=== PATIENT | female | born 1990 | race Caucasian/White ===

== ENCOUNTER → 2018-06-06 | Day surgery (SDC) | payer OTHER ==
[~2018-06-06] MED LIST: ACETAMINOPHEN 1000 MG/100 ML IV ONE; BUPIVACAINE 0.25%/EPI 30ML SDV INJ ONE; CEPHALEXIN500 MG PO; DEXAMETHASONE SOD PHOS INJ 4 MG/ML VIAL IV ONE; FENTANYL CITRATE/PF 100MCG/2 ML INJ ONE; HYDROCODONE/APAP 7.5MG-325MG 1 EA TAB ONE; IOPAMIDOL 610MG/1ML 300 MG/ML VIAL IV ONE; LIDOCAINE HCL 2% LOCAL INJ 5 ML SDV VIAL INJ ONE; MEPERIDINE HCL INJ 50 MG/ML INJ ONE; METOCLOPRAMIDE HCL 10 MG/2ML VIAL ONE; MIDAZOLAM HCL 2 MG/2 ML VIAL ONE; ONDANSETRON HCL INJ 2 MG/ML VIAL IV ONE; ONDANSETRON HCL INJ 2 MG/ML VIAL ONE; PROPOFOL IV EMULSION 10 MG/ML 20 ML VIAL IV ONE; ROCURONIUM BROMIDE 10 MG/ML 5ML VIAL IV ONE; SEVOFLURANE INHAL SOLN 250 ML PEN BTL INH ONE
--- NOTE | 2018-06-06 11:46 | Operative Report ---
DATE OF PROCEDURE: June 06, 2018 PREOPERATIVE DIAGNOSES 1. Cholecystitis. 2. Cholelithiasis. 3. Umbilical hernia. POSTOPERATIVE DIAGNOSES 1. Cholecystitis. 2. Cholelithiasis. 3. Choledocholithiasis. 4. Umbilical hernia. OPERATION PERFORMED 1. Laparoscopic cholecystectomy with intraoperative cholangiogram. 2. Repair of umbilical hernia. ANESTHESIA: General. COMPLICATIONS: None. ESTIMATED BLOOD LOSS: Minimal. DESCRIPTION OF PROCEDURE: With the patient lying in bed in the supine position, under good general endotracheal anesthesia, the abdomen was prepped with Betadine solution and draped in the usual manner. A semilunar subumbilical incision was made. It was carried down through the subcutaneous tissue down to the fascia. The hernia sac was then dissected all the way around with normal fascia. The umbilicus was then detached from the hernia sac. A Veress needle was introduced into the hernia sac, and pneumoperitoneum was established without any difficulty. An 11-mm trocar was placed through the hernia sac into the intraabdominal cavity, and a 10-mm video laparoscope was placed into the intraabdominal cavity. Under direct vision, three 5-mm trocars were placed in the right subcostal region. Video laparoscopy at this point revealed a gallbladder that contained multiple stones. The rest of the abdominal exploration was otherwise within normal limits. The adhesions at the neck of the gallbladder were then taken down, and the peritoneum overlying the neck of the gallbladder was opened and the cystic duct was identified. The cystic duct was followed to its junction with the common duct. The cystic duct at this point appeared to be rather large. We decided that we needed to do a cholangiogram since the patient had had some previous mild abnormalities of the liver function tests to rule out the possibility of a common duct stone. A small opening was made into the cystic duct, and a cholangiocath was introduced without any difficulty. Using the C-arm, half-strength dye was introduced into the biliary tree. This showed flow of dye into the duodenum but a definite filling defect in the distal common duct consistent with a common bile duct stone. Of interest is also the fact that the patient had a very long, low-lying, left-sided insertion of the cystic duct. The cholangiocath was then removed, and the cystic duct was then ligated with an Endo loop and a clip. The cystic artery was similarly doubly clipped and divided. The gallbladder was then slowly and carefully taken off the liver bed using the cautery scissors, and perfect hemostasis was ascertained. The gallbladder was placed in a pouch and removed through the hernia sac at the umbilicus. Video laparoscopy was then again carried out. The liver bed was found to be perfectly dry. All of the excess fluid was aspirated. The pneumoperitoneum was evacuated, and all the trocars were removed under direct vision. The hernia was then repaired in a transverse fashion using interrupted sutures of #0 Ethibond, closing the defect without any tension. All layers were infiltrated on the way out with a solution of 1/4 percent Marcaine. The umbilicus was then tacked back down to the midline fascia with 3-0 Vicryl. Subcutaneous tissue was approximated with 3-0 Vicryl, and all skin wounds were closed with subcuticular 5-0 Vicryl. Benzoin, Steri-Strips and dressings were applied. The sponge, lap and needle count was correct. Patient tolerated the procedure well and returned to the recovery room in stable condition. Job#: [id number]
[2018-06-06 12:15] VITALS: BP 109/85
--- NOTE | 2018-06-06 14:55 | Diagnostic Imaging Report ---
Exam: Intraoperative cholangiogram dated 06/06/2018 History: Stones Comparison: None available Findings: Multiple intraoperative images were obtained utilizing C-arm fluoroscopy. Cannulation of the cystic duct remnant was accomplished. Contrast has been injected. There is no spill into the duodenum. [place] filling defect in the distal common bile duct is compatible with an impacted stone. Fluoroscopy time: 17 seconds Cumulative area dose product: 124.07 cGycm2 Impression: [place] distal common duct filling defect compatible with an impacted stone. Signed by: Dr. Jaquan Wild DO on 06/06/2018 2:51 PM
== END | disposition home or self-care (01) ==
LOC: OR 06:44
PROVIDERS: ATTEND Surgery
DX: K80.44 Calculus of bile duct with chronic cholecystitis without obstruction (principal); K42.9 Umbilical hernia without obstruction or gangrene; Z01.812 Encounter for preprocedural laboratory examination; F41.9 Anxiety disorder, unspecified
CPT/HCPCS: 47563; 49585; 74300; 81025; 88304; C1766; J1100; J2001; J2175; J2250; J2405; J2765; Q9967

== ENCOUNTER → 2018-06-12 | Day surgery (SDC) | payer OTHER ==
[~2018-06-12] MED LIST changes: -ACETAMINOPHEN 1000 MG/100 ML IV ONE; -BUPIVACAINE 0.25%/EPI 30ML SDV INJ ONE; -DEXAMETHASONE SOD PHOS INJ 4 MG/ML VIAL IV ONE; +DEXAMETHASONE SOD PHOS INJ 4 MG/ML VIAL ONE; +GLUCAGON FOR INJ 1 MG VIAL ONE; +GLYCOPYRROLATE INJ 1MG/ 5 ML SYR ONE; -HYDROCODONE/APAP 7.5MG-325MG 1 EA TAB ONE; +INDOMETHACIN 50 MG SUPP.RECT RC ONE; +LACTATED RINGER'S 1,000 ML IV ONE; -MEPERIDINE HCL INJ 50 MG/ML INJ ONE; -METOCLOPRAMIDE HCL 10 MG/2ML VIAL ONE; +NEOSTIGMINE 5 MG/5ML SYR ONE; -ONDANSETRON HCL INJ 2 MG/ML VIAL IV ONE; -PROPOFOL IV EMULSION 10 MG/ML 20 ML VIAL IV ONE; +PROPOFOL IV EMULSION 10 MG/ML 20 ML VIAL ONE; -ROCURONIUM BROMIDE 10 MG/ML 5ML VIAL IV ONE; +ROCURONIUM BROMIDE 10 MG/ML 5ML VIAL ONE; -SEVOFLURANE INHAL SOLN 250 ML PEN BTL INH ONE; +SEVOFLURANE INHAL SOLN 250 ML PEN BTL ONE
--- NOTE | 2018-06-12 09:48 | Operative Report ---
DATE OF PROCEDURE: June 12, 2018 REFERRING PHYSICIAN: Dr. Thelma Mccall and Dr. Aleksey Oliva. PROCEDURE PERFORMED: Endoscopic retrograde cholangiopancreatography with endoscopic retrograde sphincterotomy and a balloon sweep. INDICATIONS FOR PROCEDURE: Patient is status post laparoscopic cholecystectomy, common bile duct stone was noted on the intraoperative cholangiogram. MEDICATION: Patient was done under general endotracheal anesthesia. Please see anesthesiologist's note. PROCEDURE: With the patient in the prone position, the flexible fiberoptic Olympus side-viewing scope was inserted into the oropharynx with ease and advanced all the way to the 2nd portion of the duodenum. The ampulla was identified and appeared to be within normal limits. It was cannulated with ease, and a cholangiogram was performed. This was followed with an endoscopic retrograde sphincterotomy and a balloon sweep times 2. The scope was subsequently withdrawn. Patient tolerated the procedure well. IMPRESSION 1. Ampulla within normal limits. 2. Cholangiogram was performed. 3. Endoscopic retrograde sphincterotomy was carried out in the usual fashion followed by balloon sweeps times 2. Patient tolerated the procedure well. Job#: [id number] RI cc:DO THELMA MARCUS MD
[2018-06-12 10:15] VITALS: BP 111/75
--- NOTE | 2018-06-12 10:52 | Diagnostic Imaging Report ---
PROCEDURE:ERCP TO BE READ TECHNIQUE:ERCP was performed. Contrast was injected into the biliary tree and fluoroscopic images saved without a radiologist present. COMPARISON:None. FINDINGS: Retrograde contrast opacification of the biliary tree shows no significant intrahepatic biliary ductal dilatation. Status post cholecystectomy with a long cystic duct, which inserts more caudally than expected onto the medial aspect of the common hepatic duct. Later images show a filling defect within the distal common hepatic duct which may reflect a balloon catheter. CONCLUSION: ERCP images as above status post cholecystectomy with aberrant inferomedial insertion of the cystic duct. Refer to clinical ERCP report for further details. Dictated by: Kaushal Santana M.D. on 06/12/2018 at 11:00 Electronically approved by: Kaushal Santana M.D. on 06/12/2018 at 11:00
--- OUTSIDE RECORDS SUMMARY | 2018-06-24 10:29 | XMS REPORT ---
Author Author [facility] Address Unknown Phone Unavailable Care Team Providers Care Wire Puller Name Role Phone SANDEE MCKENNA Unavailable Unavailable Ricky SO Unavailable Unavailable Problems This patient has no known problems. Allergies, Adverse Reactions, Alerts This patient has no known allergies or adverse reactions. Medications This patient has no known medications. Results Test Description Test Time Test Comments Text Results Atomic Results Result Comments ERCP TO BE READ 2018-06-12 11:00:00 [facility] [address] [place] [address] Patient Name: BETO MAC MR #: [id number] : 1990 Age/Sex: 28/F Req #: [id number] Adm Physician: Ordered by: SANDEE MCKENNA MD Report #: [id number] Location: ENDO Room/Bed: Procedure: [id number] DX/ERCP TO BE READ Exam Date: 06/12/18 Exam Time: 0813 REPORT STATUS: Signed PROCEDURE: ERCP TO BE READ TECHNIQUE: ERCP was performed. Contrast was injected into the biliary tree and fluoroscopic images saved without a radiologist present. COMPARISON: None. FINDINGS: Retrograde contrast opacification of the biliary tree shows no significant intrahepatic biliary ductal dilatation. Status post cholecystectomy with a long cystic duct, which inserts more caudally than expected onto the medial aspect of the common hepatic duct. Later images show a filling defect within the distal common hepatic duct which may reflect a balloon catheter. CONCLUSION: ERCP images as above status post cholecystectomy with aberrant inferomedial insertion of the cystic duct. Refer to clinical ERCP report for further details. Dictated by: Jose Elena M.D. on 06/12/2018 at 11:00 Electronically approved by: Jose Elena M.D. on 06/12/2018 at 11:00 Dictated By: JOSE ELENA MD 1100 Transcribed By: ERI on 06/12/18 1100 COPY TO: SANDEE MCKENNA MD CHOLANGIOGRAM INTROP 2018-06-06 14:46:00 [place] [address] Patient Name: BETO MAC MR #: [id number] : 1990 Age/Sex: 28/F Req #: [id number] Adm Physician: Ordered by: THELMA SO MD Report #: [id number] Location: OR Room/Bed: Procedure: [id number] DX/CHOLANGIOGRAM INTROP Exam Date: 06/06/18 Exam Time: 0840 REPORT STATUS: Signed Exam: Intraoperative cholangiogram dated 06/06/2018 History: Stones Comparison: None available Findings: Multiple intraoperative images were obtained utilizing C-arm fluoroscopy. Cannulation of the cystic duct remnant was accomplished. Contrast has been injected. There is no spill into the duodenum. [place] filling defect in the distal common bile duct is compatible with an impacted stone. Fluoroscopy time: 17 seconds Cumulative area dose product: 124.07 cGycm2 Impression: [place] distal common duct filling defect compatible with an impacted stone. Signed by: Dr. Angélica Wild DO on 06/06/2018 2:51 PM Dictated By: ANGÉLICA WILD DO 145 Transcribed By: GEMINI on 06/06/181450 COPY TO: THELMA SO MD
--- OUTSIDE RECORDS SUMMARY | 2018-06-24 10:29 | XMS REPORT | Clinical Summary ---
Author Author Vicente [facility] Organization [facility] Address Unknown Phone Unavailable Care Team Providers Care Electric Meter Reader Name Role Phone Alfonso Oliva MD PCP Allergies Active Allergy Reactions Severity Noted Date Comments Ciprofloxacin-Fluocinolon Other (See Comments) 09/20/2016 (felt fatigue) e Current Medications Prescription Sig. Disp. Refills Start End Date Status Date olopatadine 0.2 % drops INSTILL 2 DROPS IN EACH 1 09/16/19 Active EYE EVERY MORNING 18 PRENATE MINI, FERR ASP Take 1 capsule by mouth 9 09/18/19 Active GLYCIN, 18-1-350 mg daily. 18 capsule etonogestrel-ethinyl Insert vaginally and 1 each 5 06/18/20 06/18/20 Active estradiol (NUVARING) leave in place for 3 18 19 0.12-0.015 mg/24 hr consecutive weeks, then vaginal ring remove for 1 week. ampicillin (PRINCIPEN) Take 1 capsule (500 mg 20 capsule 0 09/16/19 09/21/19 500 MG total) by mouth 4 (four) 18 18 capsuleIndications: times a day for 5 days. Asymptomatic bacteriuria in PNV 67-iron ps-folate Take 1 capsule by mouth 30 capsule 9 09/17/19 10/15/19 Discontin no.1-dha (VITAFOL ULTRA) daily for 30 days. 18 18 ued 29 mg iron- 1 mg-200 mg capsuleIndications: Positive test PNV #[id number] Take 1 mg by mouth daily. 30 capsule 9 09/18/19 10/15/19 Discontin acid-dha (OB COMPLETE 18 18 ued PETITE) 35 mg iron-5 mg iron-1 mg capsuleIndications: care in second trimester HYDROcodone-acetaminophen Take 1 tablet by mouth 30 tablet 0 04/17/20 04/24/20 (NORCO) 5-325 mg per every 4 (four) hours as 18 18 tablet needed for moderate pain for up to 7 days. Max Daily Amount: 6 tablets ibuprofen (ADVIL,MOTRIN) Take 1 tablet (600 mg 30 tablet 0 04/17/20 05/17/20 600 MG tablet total) by mouth every 6 18 18 (six) hours as needed (Cramping, Laceration or Incision Pain) for up to 30 days. terconazole (TERAZOL 3) Insert 1 applicator into 20 g 0 06/18/20 06/21/20 0.8 % vaginal cream the vagina nightly for 3 18 18 days. 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 Encounters Date Type Specialty Care Team Description 06/18/2018 Obstetrics and Gynecology Alba Butcher MD care and Visit examination (Primary Dx) 04/22/2018 Telephone Obstetrics and Gynecology Cindi Morejon RN 04/15/2018 [facility] Obstetrics and Gynecology Alba Butcher MD - Encounter Sandy Guerra 04/17/2018 MD [place]en 04/15/2018 Anesthesia Obstetrics and Gynecology Raleigh Arce MD Event 04/10/2018 Routine Obstetrics and Gynecology Alba Butcher MD GA: 38w0d 04/03/2018 Routine Obstetrics and Gynecology Alba Butcher MD GA: 37w0d 03/27/2018 Routine Obstetrics and Gynecology Alba Butcher MD GA: 36w0d 03/20/2018 Routine Obstetrics and Gynecology Sandy Guerra GA: 35w0d MD Carmen 03/05/2018 Routine Obstetrics and Gynecology Sandy Guerra GA: 32w6d MD Carmen 03/03/2018 Telephone Obstetrics and Gynecology Cindi Morejon RN 02/26/2018 [facility] Obstetrics and Gynecology Sandy Guerra Encounter MD Carmen 02/26/2018 Routine Obstetrics and Gynecology Sandy Guerra GA: 31w6d MD [place]en 02/13/2018 Routine Obstetrics and Gynecology Sandy Guerra GA: 30w0d MD Carmen 01/30/2018 Routine Obstetrics and Gynecology Sandy Guerra GA: 28w0d MD [place]en 01/08/2018 Routine Obstetrics and Gynecology Sandy Guerra GA: 24w6d MD [place]en 12/10/2017 Routine Obstetrics and Gynecology Sandy Guerra GA: 20w5d MD [place]en 12/07/2017 Documentation Obstetrics and Gynecology Sandy Guerra MD 11/12/2017 Routine Obstetrics and Gynecology Sandy Guerra GA: 16w5d MD [place]en 10/28/2017 Documentation Obstetrics and Gynecology Sandy Guerra MD 10/15/2017 Routine Obstetrics and Gynecology Sandy Guerra GA: 12w5d MD [place] 09/18/2017 Orders Only Obstetrics and Gynecology Amanda Guerrero MA care in second trimester (Primary Dx) 09/17/2017 Orders Only Obstetrics and Gynecology Amanda Guerrero MA Positive test (Primary Dx) 09/16/2017 Telephone Obstetrics and Gynecology Amanda Guerrero MA 09/16/2017 Orders Only Obstetrics and Gynecology Sandy Guerra Asymptomatic bacteriuria MD Carmen in (Primary Dx) 09/11/2017 Initial Obstetrics and Gynecology Sandy Guerra GA: 7w6d MD [place]en after 06/11/2017 Immunizations Name Dates Previously Given Next Due INFLUENZA QUAD PF 09/11/2017 Tdap 04/17/2018 Family History Medical History Relation Name Comments No Known Problems Father Hypertension Mother Diabetes Paternal Grandfather Relation Name Status Comments Father Alive Mother Alive Paternal Grandfather Social History Tobacco Use Types Packs/Day Years Used Date Never Smoker Smokeless Tobacco: Never Used Alcohol Use Drinks/Week oz/Week Comments No Sex Assigned at Date Recorded Not on file Last Filed Vital Signs Vital Sign Reading Time Taken Blood Pressure 109/77 06/18/2018 10:23 AM CDT Pulse 73 06/18/2018 10:23 AM CDT Temperature 36.9 C (98.5 F) 04/17/2018 8:15 AM CDT Respiratory Rate 18 04/17/2018 8:15 AM CDT Oxygen Saturation - - Inhaled Oxygen - - Concentration Weight 67.7 kg (149 lb 3.2 oz) 06/18/2018 10:23 AM CDT Height 170.2 cm (5' 7") 06/18/2018 10:23 AM CDT Body Mass Index 23.37 06/18/2018 10:23 AM CDT Plan of Treatment Health Maintenance Due Date Last Done Comments INFLUENZA VACCINE 04/09/2018 09/11/2017, 08/09/2017 CERVICAL CANCER SCREENING 09/11/2020 09/11/2017 Procedures Procedure Name Priority Date/Time Associated Diagnosis Comments HC COMPLETE BLD COUNT Routine 04/16/2018 Results for this W/AUTO DIFF 5:43 AM CDT procedure are in the results section. ANESTHESIA EPIDURAL BLOCK Routine 04/15/2018 12:47 PM CDT Procedure Note - Raleigh Arce MD - 04/15/2018 12:47 PM CDT Epidural Block Performed by: RALEIGH ARCE Authorized by: RALEIGH ARCE ANESTHESIA EPIDURAL BLOCK Routine 04/15/2018 12:39 PM CDT Procedure Note - Raleigh Arce MD - 04/15/2018 12:39 PM CDT Epidural Block Performed by: RALEIGH ARCE Authorized by: RALEIGH ARCE Patient Location: OB Start Time: 04/15/2018 11:40 AM Reason for Block: labor epidural Anesthesio logist: RALEIGH ARCE Preprocedu re: patient identified , IV checked, site and side verified, risks and benefits discussed, procedure verified, surgical consent completed, patient position confirmed, monitors and equipment checked and pre-op evaluation completed Time Out Performed: 04/15/2018 11:40 AM Patient Position: Right lateral decubitus Prep: Betadine Monitoring : Blood pressure monitoring , continuous pulse oximetry and heart rate Approach: Midline Interspace : L3-4 Injection Technique: ABEL air Needle Type: Tuohy Needle Gauge: 17 Test Dose: Negative Number of Attempts: 1 Pump program started: pain pump Coagulati on status: Coagulatio n status reviewed Block Outcome: No apparent complicati ons, patient comfortabl e and patient tolerated procedure well Post-proce dure: Patient returned to supine position with left lateral displaceme nt and sterile dressing applied Time: 04/15/2018 11:40 AM Pump program changed: pain pump TYPE AND SCREEN Routine 04/15/2018 Results for this 7:49 AM CDT procedure are in the results section. SYPHILIS TREPONEMAL IGG Routine 04/15/2018 Results for this 7:46 AM CDT procedure are in the results section. HEPATITIS B SURFACE Routine 04/15/2018 Results for this ANTIGEN 7:46 AM CDT procedure are in the results section. HIV 1, 2 ANTIBODY Routine 04/15/2018 Results for this 7:46 AM CDT procedure are in the results section. HC COMPLETE BLD COUNT Routine 04/15/2018 Results for this W/AUTO DIFF 7:46 AM CDT procedure are in the results section. POC URINALYSIS DIPSTICK Routine 04/10/2018 care in third Results for this 1:51 PM CDT trimester procedure are in the results section. POC URINALYSIS DIPSTICK Routine 04/03/2018 Multigravida in third Results for this 11:10 AM CDT trimester procedure are in the results section. POC URINALYSIS DIPSTICK Routine 03/27/2018 Multigravida in third Results for this 10:54 AM CDT trimester procedure are in the results section. SURESWAB(R), CANDIDIASIS, Routine 03/20/2018 Results for this PCR (REFLEX) 11:41 AM CDT procedure are in the results section. SURESWAB(R) TRICHOMONAS Routine 03/20/2018 Results for this VAGINALIS RNA, QL, TMA 11:41 AM CDT procedure are in the results section. SURESWAB(R) BACTERIAL Routine 03/20/2018 Results for this VAGINOSIS DNA, QN, PCR 11:41 AM CDT procedure are in the (REFLEX) results section. POC URINALYSIS DIPSTICK Routine 03/20/2018 care in third Results for this 11:13 AM CDT trimester procedure are in the results section. POC URINALYSIS DIPSTICK Routine 03/05/2018 32 weeks gestation of Results for this 11:11 AM CDT procedure are in the results section. POC URINALYSIS DIPSTICK Routine 02/26/2018 care in third Results for this 2:50 PM CDT trimester procedure are in the results section. URINALYSIS SCREEN AND STAT 02/26/2018 Results for this MICROSCOPY, WITH REFLEX 1:34 PM CDT procedure are in the TO CULTURE results section. URINE CULTURE STAT 02/26/2018 Results for this 1:34 PM CDT procedure are in the results section. GRAM STAIN STAT 02/26/2018 Results for this 1:34 PM CDT procedure are in the results section. FIBRONECTIN Routine 02/26/2018 Results for this 1:05 PM CDT procedure are in the results section. POC URINALYSIS DIPSTICK Routine 02/17/2018 care in third Results for this 3:05 PM CDT trimester procedure are in the results section. POC URINALYSIS DIPSTICK Routine 01/30/2018 care in second Results for this 9:38 AM CDT trimester procedure are in the results section. POC URINALYSIS DIPSTICK Routine 01/08/2018 care in second Results for this 8:33 AM CDT trimester procedure are in the results section. RPR TITER WITH REFLEX TO Routine 01/08/2018 care in second Results for this CONFIRMATION 8:10 AM CDT trimester procedure are in the results section. GESTATIONAL DIABETES Routine 01/08/2018 care in second Results for this SCREEN 8:10 AM CDT trimester procedure are in the results section. CBC WITH PLATELET AND Routine 01/08/2018 care in second Results for this DIFFERENTIAL 8:10 AM CDT trimester procedure are in the results section. ANTIBODY SCREEN Routine 01/08/2018 care in second Results for this 8:10 AM CDT trimester procedure are in the results section. POC URINALYSIS DIPSTICK Routine 12/10/2017 care in second Results for this 10:07 AM CDT trimester procedure are in the results section. POC URINALYSIS DIPSTICK Routine 11/12/2017 care in second Results for this 10:36 AM BUSINESS FUNCTIONAL ANALYST trimester procedure are in the results section. POC URINALYSIS DIPSTICK Routine 10/15/2017 care in second Results for this 10:53 AM BUSINESS FUNCTIONAL ANALYST trimester procedure are in the results section. HIV 1/2 ANTIGEN/ANTIBODY, Routine 09/11/2017 Results for this FOURTH GENERATION W/RFL 5:11 PM BUSINESS FUNCTIONAL ANALYST procedure are in the (REFLEX QUEST) results section. RUBELLA IMMUNE STATUS Routine 09/11/2017 Results for this 5:11 PM BUSINESS FUNCTIONAL ANALYST procedure are in the results section. HEPATITIS B SURFACE Routine 09/11/2017 Results for this ANTIGEN 5:11 PM BUSINESS FUNCTIONAL ANALYST procedure are in the results section. RPR TITER WITH REFLEX TO Routine 09/11/2017 Results for this CONFIRMATION 5:11 PM BUSINESS FUNCTIONAL ANALYST procedure are in the results section. ABO/RH Routine 09/11/2017 Results for this 5:11 PM BUSINESS FUNCTIONAL ANALYST procedure are in the results section. ANTIBODY SCREEN Routine 09/11/2017 Results for this 5:11 PM BUSINESS FUNCTIONAL ANALYST procedure are in the results section. CBC WITH PLATELET AND Routine 09/11/2017 Results for this DIFFERENTIAL 5:11 PM BUSINESS FUNCTIONAL ANALYST procedure are in the results section. VARICELLA ZOSTER VIRUS Routine 09/11/2017 Secondary amenorrhea Results for this AB, IGG 5:11 PM BUSINESS FUNCTIONAL ANALYST Positive test procedure are in the results section. THYROID STIMULATING Routine 09/11/2017 Secondary amenorrhea Results for this HORMONE 5:11 PM BUSINESS FUNCTIONAL ANALYST Positive test procedure are in the results section. T4, FREE Routine 09/11/2017 Secondary amenorrhea Results for this 5:11 PM BUSINESS FUNCTIONAL ANALYST Positive test procedure are in the results section. HEPATITIS C ANTIBODY Routine 09/11/2017 Secondary amenorrhea Results for this 5:11 PM BUSINESS FUNCTIONAL ANALYST Positive test procedure are in the results section. URINE CULTURE Routine 09/11/2017 Secondary amenorrhea Results for this 5:11 PM BUSINESS FUNCTIONAL ANALYST Positive test procedure are in the results section. CHLAMYDIA/N. GONORRHOEAE Routine 09/11/2017 Results for this RNA, TMA 4:53 PM BUSINESS FUNCTIONAL ANALYST procedure are in the results section. THINPREP TIS PAP REFLEX Routine 09/11/2017 Results for this HPV MRNA E6/E7 4:53 PM BUSINESS FUNCTIONAL ANALYST procedure are in the results section. POC URINALYSIS DIPSTICK Routine 09/11/2017 Positive test Results for this 4:02 PM BUSINESS FUNCTIONAL ANALYST procedure are in the results section. POC , URINE Routine 09/11/2017 Secondary amenorrhea Results for this 4:01 PM BUSINESS FUNCTIONAL ANALYST procedure are in the results section. after 06/11/2017 Results * CBC with platelet and differential (04/16/2018 5:43 AM) Only the most recent of 4 results within the time period is included. WBC 12.33 (H) 4.50 - 11.00 k/uL [facility] DEPARTMENT OF PATHOLOGY AND GENOMIC MEDICINE RBC 3.84 (L) 4.20 - 5.50 m/uL [facility] DEPARTMENT OF PATHOLOGY AND GENOMIC MEDICINE HGB 10.7 (L) 12.0 - 16.0 g/dL [facility] DEPARTMENT OF PATHOLOGY AND GENOMIC MEDICINE HCT 33.5 (L) 37.0 - 47.0 % [facility] DEPARTMENT OF PATHOLOGY AND GENOMIC MEDICINE MCV 87.2 82.0 - 100.0 fL [facility] DEPARTMENT OF PATHOLOGY AND GENOMIC MEDICINE MCH 27.9 27.0 - 34.0 pg [facility] DEPARTMENT OF PATHOLOGY AND GENOMIC MEDICINE MCHC 31.9 31.0 - 37.0 g/dL [facility] DEPARTMENT OF PATHOLOGY AND GENOMIC MEDICINE RDW - SD 49.8 37.0 - 55.0 fL [facility] DEPARTMENT OF PATHOLOGY AND GENOMIC MEDICINE MPV 13.2 8.8 - 13.2 fL [facility] DEPARTMENT OF PATHOLOGY AND GENOMIC MEDICINE Platelet count 100 (L) 150 - 400 k/uL [facility] DEPARTMENT OF PATHOLOGY AND GENOMIC MEDICINE Nucleated RBC 0.00 /100 WBC [facility] DEPARTMENT OF PATHOLOGY AND GENOMIC MEDICINE Neutrophils 74.9 (H) 39.0 - 69.0 % [facility] DEPARTMENT OF PATHOLOGY AND GENOMIC MEDICINE Lymphocytes 18.7 (L) 25.0 - 45.0 % [facility] DEPARTMENT OF PATHOLOGY AND GENOMIC MEDICINE Monocytes 4.9 0.0 - 10.0 % [facility] DEPARTMENT OF PATHOLOGY AND GENOMIC MEDICINE Eosinophils 0.6 0.0 - 5.0 % [facility] DEPARTMENT PATHOLOGY AND GENOMIC MEDICINE Basophils 0.3 0.0 - 1.0 % [facility] DEPARTMENT OF PATHOLOGY AND GENOMIC MEDICINE Specimen Blood Performing Organization Address City/[facility] Phone Number [address] [place] [address] PATHOLOGY AND GENOMIC MEDICINE * Type and screen (04/15/2018 7:49 AM) ABO grouping O [facility] DEPARTMENT OF PATHOLOGY AND GENOMIC MEDICINE Rh type POS [facility] DEPARTMENT OF PATHOLOGY AND GENOMIC MEDICINE Antibody screen NEG [facility] DEPARTMENT OF PATHOLOGY AND GENOMIC MEDICINE Specimen Blood Performing Organization Address City/[facility]/Zipcode Phone Number [address] [place] [address] PATHOLOGY AND [facility] * Syphilis treponemal IgG (04/15/2018 7:46 AM) Syphilis treponemal IgG Non-reactiveComment: Non-reactive [facility] DEPARTMENT OF Non-reactive: No serological PATHOLOGY AND evidence of Syphilis infection GENOMIC [facility] Specimen Serum Performing Organization Address City/[facility]/Zipcode Phone Number [address] [address] PATHOLOGY AND [facility] MEDICINE * HIV 1, 2 antibody (04/15/2018 7:46 AM) HIV 1, 2 antibody Nonreactive Non-reactive [facility] DEPARTMENT OF Comment: PATHOLOGY AND Starting from December 06 2015, GENOMIC MEDICINE 4th generation HIV screening and confirmation assays are in use at [facility], consistent with the CDC-recommended algorithm. The screening test detects antibodies to HIV-1, HIV-2 and the p24 antigen. Positive screening results will be automatically reflexed to a HIV-1/HIV-2 differentiation assay. Indeterminant HIV-1 results will be further automatically reflexed to a nucleic acid test for detection of acute infection. Western blot will no longer be performed as a confirmation test. For a quick reference guide on the testing algorithm, please refer to: http://stacks.cdc.gov/view/cdc /63018. Specimen Blood Performing Organization Address City/[facility]/Zipcode Phone Number [facility] [place] [id number] [place] [address] [place] [address] PATHOLOGY AND GENOMIC MEDICINE * Hepatitis B surface antigen (04/15/2018 7:46 AM) Only the most recent of 2 results within the time period is included. Hepatitis B surface Ag Nonreactive Non-reactive [facility] OF PATHOLOGY AND GENOMIC [facility] Specimen Blood Performing Organization Address [facility] Phone Number [address] [place] [address] PATHOLOGY AND [facility] MEDICINE * POC urinalysis dipstick (04/10/2018 1:51 PM) Only the most recent of 13 results within the time period is included. Color urine, POC Yellow Clarity urine, POC Slightly Cloudy Glucose urine, POC Negative Negative Bilirubin urine, POC Negative Negative Ketones urine, POC Negative Negative Specific gravity urine, 1.020 1.005 - 1.030 POC Blood urine, POC Negative Negative pH urine, POC 6.5 5.0, 5.5, 6.0, 6.5, 7.0, 7.5, 8.0, 8.5 Protein urine, POC Negative Negative Urobilinogen urine, POC <2.0 <2.0 Nitrite urine, POC Negative Negative Leukocyte esterase urine, Negative Negative POC Specimen Urine * SURESWAB(R), CANDIDIASIS, PCR (03/20/2018 11:41 AM) C. albicans, DNA NOT DETECTED [facility] C. glabrata, DNA NOT DETECTED [facility] C. tropicalis, DNA NOT DETECTED [facility] C. parapsilosis, DNA NOT DETECTED [facility] Comment: REFERENCE RANGE: NOT DETECTED This test was developed and its analytical performance characteristics have been determined by [facility]. It has not been cleared or approved by FDA. This assay has been validated pursuant to the CLIA regulations and is used for clinical purposes. Other Results Text Performing Organization Information: Site ID: [place] Name: [email or web address] Address: [address] [place] [id number] Director: Raad Jamison MD Performing Organization Address [facility] Phone Number [facility] [address] [place] [address] [phone] * SURESWAB(R) TRICHOMONAS VAGINALIS RNA, QL, TMA (Reflex) (03/20/2018 11:41 AM) [facility](r) trichomonas NOT DETECTED [facility] vaginalis RNA, QL, TMA Comment: REFERENCE RANGE: NOT DETECTED This test was performed using the APTIMA(R) Trichomonas vaginalis assay (Gen-Probe(R)). For additional information, please refer to http://education.AgraQuest.Annexon/faq/Trichomonastma Other Results Text Performing Organization Information: Site ID: [place] Name: [email or web address] Address: [address] [place] [id number] Director: Raad Jamison MD Performing Organization Address [facility] Phone Number [facility] [address] [place] [address] [phone] * SUREAB(R) BACTERIAL VAGINOSIS DNA, QN, PCR (03/20/2018 11:41 AM) BV category NOT SUPPORTIVE [facility] Lactobacillus species NOT DETECTED Log (cells/mL) [facility] Atopobium vaginae NOT DETECTED Log (cells/mL) [facility] Megasphaera species NOT DETECTED Log (cells/mL) [facility] Gardnerella vaginalis NOT DETECTED Log (cells/mL) [facility] Comment: REFERENCE RANGE: BV Category: NOT SUPPORTIVE NOT SUPPORTIVE OF BV: The pattern of results is not supportive of a diagnosis of BV: 1) Presence of Lactobacillus spp., G. vaginalis levels less than 6.0 log cells/mL, and absence of A. vaginae and Megasphaera spp; or 2) Absence of all targeted organisms; or 3) Absence of Lactobacillus spp. plus G. vaginalis detected at levels less than 6.0 log cells/mL and absence of A. vaginae and Megasphaera spp. EQUIVOCAL FOR BV: The pattern of results is neither supportive nor not supportive of a diagnosis of BV. The patient may be in transition into or out of BV: Presence of Lactobacillus spp. plus G. vaginalis (greater or equal to 6.0 log cells/mL) and/or one of the other BV-associated pathogens. SUPPORTIVE OF BV: The pattern of results is supportive of a diagnosis of BV: Absence of Lactobacillus spp. and presence of G. vaginalis greater than or equal to 6.0 log cells/mL and/or one or both of the other BV-associated pathogens. Concentration for Lactobacilli (L. acidophilus/crispatus, L. jensenii) are collectively reported under the term "Lactobacillus spp.", as these species are among the peroxide producing Lactobacilli thought to be protective against bacterial vaginosis. Atopobium vaginae, Megasphaera spp., and Gardnerella (greater than 6.0 log cells/mL) have been associated with vaginosis when present in the absence of peroxidase producing Lactobacilli. This test was developed and its analytical performance characteristics have been determined by [facility]. It has not been cleared or approved by FDA. This assay has been validated pursuant to the CLIA regulations and is used for clinical purposes. Other Results Text Performing Organization Information: Site ID: [id number] Name: [facility] Address: [address] [place] [id number] Director: Raad Jamison MD Performing Organization Address City/State/Zipcode Phone Number [facility] [address] [place] [address] [phone] * Urinalysis screen and microscopy, with reflex to culture (02/26/2018 1:34 PM) Specimen site Clean catch [facility] DEPARTMENT OF PATHOLOGY AND GENOMIC MEDICINE Color, UA Yellow [facility] DEPARTMENT OF PATHOLOGY AND GENOMIC MEDICINE Appearance, UA Cloudy [facility] DEPARTMENT OF PATHOLOGY AND GENOMIC MEDICINE Specific gravity, UA 1.020 1.001 - 1.035 [facility] DEPARTMENT OF PATHOLOGY AND GENOMIC MEDICINE pH, UA 6.0 5.0 - 8.5 [facility] DEPARTMENT OF PATHOLOGY AND GENOMIC MEDICINE Protein, UA Negative Negative [facility] DEPARTMENT OF PATHOLOGY AND GENOMIC MEDICINE Glucose, UA 1+ (A) Negative [facility] DEPARTMENT OF PATHOLOGY AND GENOMIC MEDICINE Ketones, UA Trace (A) Negative [facility] DEPARTMENT OF PATHOLOGY AND GENOMIC MEDICINE Bilirubin, UA Negative Negative [facility] DEPARTMENT OF PATHOLOGY AND GENOMIC MEDICINE Blood, UA Negative Negative [facility] DEPARTMENT OF PATHOLOGY AND GENOMIC MEDICINE Nitrite, UA Negative Negative [facility] DEPARTMENT OF PATHOLOGY AND GENOMIC MEDICINE Urobilinogen, UA 2.0 (A) <2.0 [facility] DEPARTMENT OF PATHOLOGY AND GENOMIC MEDICINE Leukocyte esterase, UA Moderate (A) Negative [facility] DEPARTMENT OF PATHOLOGY AND GENOMIC MEDICINE Epithelial cells, UA Many /HPF [facility] DEPARTMENT OF PATHOLOGY AND GENOMIC MEDICINE WBC, UA 11-20 (H) 0 - 4 /HPF [facility] DEPARTMENT OF PATHOLOGY AND GENOMIC MEDICINE RBC, UA 0-5 0 - 5 /HPF [facility] DEPARTMENT OF PATHOLOGY AND GENOMIC MEDICINE Bacteria, UA Trace None seen [facility] DEPARTMENT OF PATHOLOGY AND GENOMIC MEDICINE Yeast, UA None seen [facility] HEALTH SERVICES DEPARTMENT OF PATHOLOGY AND GENOMIC MEDICINE Yeast with pseudohyphae, None seen [facility] DEPARTMENT OF UA PATHOLOGY AND GENOMIC MEDICINE Specimen Urine Performing Organization Address City/[facility]/Zipcode Phone Number [facility] DEPARTMENT [id number] [place] [address] [place] [address] PATHOLOGY AND GENOMIC MEDICINE * Gram stain (02/26/2018 1:34 PM) Gram stain result Few WBC's [facility] DEPARTMENT OF Occasional Gram positive rods PATHOLOGY AND Comment: GENOMIC MEDICINE Specimen Information Specimen Source: Urine Specimen Site: Clean catch Specimen Urine Performing Organization Address City/[facility]/Zipcode Phone Number [facility] DEPARTMENT OF [address] [phone] PATHOLOGY AND GENOMIC MEDICINE * Urine culture (02/26/2018 1:34 PM) Only the most recent of 2 results within the time period is included. Urine culture isolate Mixed Gram positive solange [facility] DEPARTMENT OF 10-2 cfu/ml PATHOLOGY AND (A) GENOMIC MEDICINE Comment: Specimen Information Specimen Source: Urine Specimen Site: Clean catch Specimen Urine Performing Organization Address City/[facility]/Zipcode Phone Number [facility] DEPARTMENT OF [address] [phone] PATHOLOGY AND GENOMIC MEDICINE * fibronectin (02/26/2018 1:05 PM) fibronectin NegativeComment: [facility] DEPARTMENT OF [id number] PATHOLOGY AND GENOMIC MEDICINE Specimen Fluid Performing Organization Address City/State/Zipcode Phone Number [facility] [place] [place] [address] [place] [address] PATHOLOGY AND GENOMIC MEDICINE * Gestational Diabetes Screen (01/08/2018 8:10 AM) Glucose, gestational 126 <135 mg/dL [facility] screen (50g)-135 cutoff CENTER Specimen Blood Other Results Text Performing Organization Information: Site ID: RGA Name: [facility] Address: [address] [place] [phone] Director: Rosie Zaldivar Performing Organization Address [facility] Phone Number [facility] [place] [address] * RPR titer with reflex to confirmation (01/08/2018 8:10 AM) Only the most recent of 2 results within the time period is included. RPR (dx) w/refl titer and NON-REACTIVE NON-REACTIVE [facility] confirmatory testing CENTER Specimen Blood Other Results Text Performing Organization Information: Site ID: RGA Name: [facility] Address: [address] [place] [phone] Director: Rosie Zaldivar Performing Organization Address [facility] Phone Number [facility] [address] [address] * Antibody screen (01/08/2018 8:10 AM) Only the most recent of 2 results within the time period is included. Antibody screen, RBC NO ANTIBODIES DETECTED [facility] w/refl ID, titer and Ag Comment: [employer] C II Reference range No antibodies detected This assay is a screening test for the detection of red blood cell antibodies. The test is not to be used for pretransfusion screening or for the medical management of an alloimmunized . Specimen Blood Other Results Text Performing Organization Information: Site ID: IG Name: [facility] Address: [address] [place] [address] Director: Dr. Dell Beauchamp Performing Organization Address City/State/Zipcode Phone Number [facility] Services[facility] [place] [phone] [facility] [place] [address] II * Rubella Immune Status (09/11/2017 5:11 PM) Rubella IgG antibody 2.60 index [facility] Comment: [employer] C Index II Interpretation ----- <0.90 Not consistent with Immunity 0.90-0.99 Equivocal > or=1.00Consistent with Immunity The presence of rubella IgG antibody suggests immunization or past or current infection with rubella virus. Narrative Performed At FASTING:UNKNOWN [facility] FASTING: UNKNOWN Other Results Text Performing Organization Information: Site ID: IG Name: [facility] Address: [address] [place] [phone] Director: Dr. Dell Beauchamp Performing Organization Address City/State/Zipcode Phone Number [facility] [address] II * HIV 1/2 ANTIGEN/ANTIBODY, FOURTH GENERATION W/RFL (REFLEX [facility]) (09/11/2017 5:11 PM) HIV AG/AB 4th gen NON-REACTIVE NON-REACTIVE [facility] Comment: CENTER HIV-1 antigen and HIV-1/HIV-2 antibodies were not detected. There is no laboratory evidence of HIV infection. PLEASE NOTE: This information has been disclosed to you from records whose confidentiality may be protected by state law.If your state requires such protection, then the state law prohibits you from making any further disclosure of the information without the specific written consent of the person to whom it pertains, or as otherwise permitted by law. A general authorization for the release of medical or other information is NOT sufficient for this purpose. For additional information please refer to http://education.[employer].com/faq/QVT064 (This link is being provided for informational/ educational purposes only.) The performance of this assay has not been clinically validated in patients less than 2 years old. Narrative Performed At FASTING:UNKNOWN [facility] FASTING: UNKNOWN Other Results Text Performing Organization Information: Site ID: RGA Name: [facility] Address: [address] [place] [phone] Director: Rosie Zaldivar MD Performing Organization Address [facility] Phone Number [facility] [address] [address] * Hepatitis C antibody (09/11/2017 5:11 PM) Hepatitis C Ab NON-REACTIVE NON-REACTIVE [employer] CENTER Signal/cutoff 0.01 <1.00 [employer] CENTER Specimen Blood Narrative Performed At FASTING:UNKNOWN [facility] FASTING: UNKNOWN Other Results Text Performing Organization Information: Site ID: RGA Name: [facility] Address: [address] [place] [phone] Director: Rosie Zaldivar MD Performing Organization Address [facility] Phone Number [facility] [place] [address] * ABO and Rh (09/11/2017 5:11 PM) ABO grouping O [employer] II Rh type RH(D) POSITIVE [employer] II Narrative Performed At FASTING:UNKNOWN [facility] FASTING: UNKNOWN Other Results Text Performing Organization Information: Site ID: IG Name: [facility] Address: [address] [place] [phone] Director: Dr. Dell Beauchamp Performing Organization Address [facility] Phone Number [facility] [employer] [address] II * Varicella zoster virus Ab, IgG (09/11/2017 5:11 PM) VZV IgG 748.90 index [facility] Comment: [employer] II Index Interpretation --------- <135.00 Negative - Antibody not detected 135.00 - 164.99Equivocal > pn=247.00Positive - Antibody detected A positive result indicates that the patient has antibody to VZV but does not differentiate between an active or past infection. The clinical diagnosis must be interpreted in conjunction with the clinical signs and symptoms of the patient. This assay reliably measures immunity due to previous infection but may not be sensitive enough to detect antibodies induced by vaccination. Thus, a negative result in a vaccinated individual does not necessarily indicate susceptibility to VZV infection. Specimen Blood Narrative Performed At FASTING:UNKNOWN [facility] FASTING: UNKNOWN Other Results Text Performing Organization Information: Site ID: IG Name: [facility] Address: [address] [place] [address] Director: Dr. Dell Beauchamp Performing Organization Address City/[facility] Phone Number [facility] [address] [facility] [place] [address] II * Thyroid stimulating hormone (09/11/2017 5:11 PM) TSH 2.35 mIU/L [employer] Comment: CENTER Reference Range > or=20 Years0.40-4.50 Ranges First trimester0.26-2.66 Second trimester 0.55-2.73 Third trimester0.43-2.91 Specimen Blood Narrative Performed At FASTING:UNKNOWN [facility] FASTING: UNKNOWN Other Results Text Performing Organization Information: Site ID: RGA Name: [facility] Address: [address] [place] [phone] Director: Rosie Zaldivar MD Performing Organization Address [facility] Phone Number [facility] [address] [address] * T4, free (09/11/2017 5:11 PM) T4, free 1.2 0.8 - 1.8 ng/dL [facility] [employer] CENTER Specimen Blood Narrative Performed At FASTING:UNKNOWN [facility] FASTING: UNKNOWN Other Results Text Performing Organization Information: Site ID: A Name: [facility] Address: [address] [place] [phone] Director: Rosie Zaldivar MD Performing Organization Address [facility] Phone Number [facility] [address] [address] * CHLAMYDIA/N. GONORRHOEAE RNA, TMA (09/11/2017 4:53 PM) Chlamydia trachomatis NOT DETECTED NOT DETECTED [facility] RNA, [facility] Neisseria gonorrhoeae NOT DETECTED NOT DETECTED [facility] RNA, [facility] (Always message) Comment: [employer] This test was performed using CENTER the APTIMA COMBO2 Assay ([employer] The analytical performance characteristics of this assay, when used to test SurePath specimens have been determined by [facility]. Other Results Text Performing Organization Information: Site ID: RGA Name: [facility] Address: [address] [place] [phone] Director: Rosie Zaldivar MD Performing Organization Address [facility] Phone Number [facility] [address] [phone] * THINPREP TIS PAP REFLEX HPV mRNA E6/E7 (09/11/2017 4:53 PM) Clinical information None given [employer] CENTER Date of last menstrual 20,171,109 [facility] period CENTER Prev. pap: NONE GIVEN [facility] CENTER Prev. bx: NONE GIVEN [facility] CENTER Source Cervix [facility] CENTER Statement of adequacy Comment: [facility] Satisfactory for evaluation. CENTER Endocervical/transformation zone component present. Interpretation/result: Comment: Negative for [employer] intraepithelial lesion or CENTER malignancy. Comment Comment: [employer] This Pap test has been CENTER evaluated with computer assisted technology. Tip of collection device in vial Line Walker Comment: [employer] PMT, CT(ASCP) CENTER CT screening location: [place] [address] Other Results Text Performing Organization Information: Site ID: RGA Name: [facility] Address: [address] [place] [phone] Director: Rosie Zaldivar MD Performing Organization Address City/[facility] Phone Number [facility] CENTER [address] [place] [phone] * POC , urine (09/11/2017 4:01 PM) test urine, POC Positive QC done No Specimen Urine after 06/11/2017 Insurance Payer Benefit Subscriber ID Type Phone Address Plan / Group DEBORAH CABRERA xxxxxxxxxxx HMO HMO/POS
== END | disposition home or self-care (01) ==
LOC: ENDO 06:26
PROVIDERS: ATTEND Internal Medicine Gastroenterology
DX: K91.86 Retained cholelithiasis following cholecystectomy (principal); Y83.8 Other surgical procedures as the cause of abnormal reaction of the patient, or of later complication, without mention of misadventure at the time of the procedure; Z88.1 Allergy status to other antibiotic agents
CPT/HCPCS: 43262; 74328; 81025; J1100; J1610; J2001; J2250; J2405; J3490; Q9967; 43260